=== PATIENT | male | born 1970 | race Caucasian/White ===

== ENCOUNTER 2022-05-12 00:22 | Day surgery (SDC) | payer OTHER, SELFPAY ==
[2022-05-05 08:38] VITALS: BMI 25.8
--- NOTE | 2022-05-05 08:39 | PC.NURSE ---
Report to the Outpatient Waiting Room, entrance under the green pavilion located off [facility], at time _1300_ on date _[id number]_. Planned Procedure Time: _1400_. Time changes happen often and if your time is changed the preop area will call you the afternoon before. - You and your visitor will be asked to self-screen and do not enter if you have any COVID symptoms. - We encourage only one visitor and NO visitors under age 16 are allowed at this time. Your visitor will receive communication by the phone number that is given day of service. - The patient visitor is requested to social distance or may leave the building when not with patient due to restrictions. - A mask is required within the hospital. Ok to eat breakfast and lunch, no restrictions. Take the following medications with a SIP of water the morning of surgery: ____None Medications to discontinue per physician None Date to take last dose Please no make-up, nail citizen of [place], hairspray, perfume, deodorant, or body powder the day of surgery. No jewelry (including any body piercings) or valuables the day of surgery, leave them at home. Please take a shower or bath the night before, or the morning of, surgery with an antibacterial soap. Wear comfortable, loose fitting clothing. - Jewelry must be removed prior to entering the operating room. Rings and piercings that are not removed may be cut off. - The hospital will not accept responsibility for valuables. - Please leave all valuables, including medications, at home the day of surgery. Ok to drive since no anesthesia but probably won't want to in light of the type of surgery. Patient says will drive. Follow any additional instructions given to you from your surgeon. If you or anyone in your household have experienced Covid symptoms in the past week, please notify your surgeon or the nurse liaison at the phone number below for possible testing. Telephone instructions given to _Patient___and asked if any additional questions and then verbalized understanding. Patient advised to call surgeon office or pre surgery nurse liaison [phone] if any additional questions.
--- NOTE | 2022-05-12 07:13 | WPDHPUPDATE1 ---
History and Physical Update Update Date/Time: 05/12/22 07:13 History and Physical has been reviewed, including an updated exam of the patient. There are NO changes in the patient's condition. Risks, benefits, and alternatives have been discussed and questions answered. Patient agrees to proceed with procedure.
[2022-05-12 11:00] VITALS: BP 144/80; PULSE 64; RESP 14; TEMP 36.9; O2SAT 98
[2022-05-12] MEDS: LIDO 2%/EPINEPHRINE 1:100,000 50 ML VIAL 16 ML INFILTRATE (11:28)
[2022-05-12 11:30] VITALS: BP 173/81; PULSE 82; RESP 16; O2SAT 97
[2022-05-12 11:47] VITALS: BP 173/83; PULSE 72; RESP 18; O2SAT 98
[2022-05-12 12:02] VITALS: BP 173/73; PULSE 68; RESP 18; O2SAT 98
[2022-05-12 12:12] VITALS: BP 179/89; PULSE 64; RESP 18; O2SAT 98
[2022-05-12 12:13] VITALS: BP 154/87; PULSE 60; RESP 18; O2SAT 99
--- NOTE | 2022-05-12 12:54 | W.PM.PROC2 ---
Procedure Note - Detailed Date of Procedure 05/12/22 Pre-op Diagnosis bilateral carpal tunnel syndrome Post-op Diagnosis Same Procedure Performed Bilateral open carpal tunnel release Surgeon Cliff Dior MD Anesthesia Local Description of Procedure Open carpals were marked on the patient waiting in holding. He was to the operating placed supine operating table. Two hands were prepped draped separate tables. The 2 sites were remarked for the incision and each locally infiltrated with 2% lidocaine with epinephrine. The left side was done 1st with elevation of the tourniquet to 250 mmHg. The incision was made as marked on the palm. Blunt dissection revealed the palmar fascia this and the transverse retinaculum were incised with a 15. Blade. Under 3 point retraction the retinaculum was divided distally and proximally for complete release. There no unusual anatomy noted. The skin was closed with interrupted 4-0 nylon suture and the tourniquet was released. Attention was turned to right side. The right side injected at the time the left was . The right upper extremity was elevated and the tourniquet inflated to 250 mmHg. The incision was made as marked dissection was carried bluntly through the subcutaneous tissue. The palmar fascia and retinaculum were incised with a 15 blade. Under 3 point retraction the ligament was divided distally and proximally for complete release. The skin was closed with interrupted 4-0 nylon suture. No unusual anatomy was noted. The tourniquet was released. Both wounds were dressed in usual fashion. The patient discharge instructions care and follow-up and a prescription was sent to his pharmacy for hydrocodone 5/325 7. Estimated Blood Loss 5 Drains No Packing No Complications No immediate complications Condition Stable Disposition Same day
== END 2022-05-12 12:45 | disposition home or self-care (01) ==
PROVIDERS: Visit Provider Plastic Surgery
PROC: (CPT 64721; principal; 2022-05-12 11:30)
DX: G56.03 Carpal tunnel syndrome, bilateral upper limbs (principal)
CPT/HCPCS: 64721; A9270